=== PATIENT | female | born 1970 | race African-American/Black ===

== ENCOUNTER 2020-10-30 13:00 | Emergency (ER) | payer OTHER ==
[~2020-10-30] VITALS: Ht 170.2 cm; Wt 122.5 kg
[2020-10-30] MEDS ORDERED: IBUPROFEN IB200 MG PO (13:46)
== END 2020-10-30 14:35 | disposition home or self-care (01) ==
LOC: FSED 13:09
DX: M54.2 Cervicalgia (principal); M54.9 Dorsalgia, unspecified; V53.5XXA Driver of pick-up truck or van injured in collision with car, pick-up truck or van in traffic accident, initial encounter; Y92.488 Other paved roadways as the place of occurrence of the external cause
CPT/HCPCS: 99283